=== PATIENT | male | born 1960 | race Caucasian/White ===

== ENCOUNTER 2017-05-08 17:21 | Emergency (ER) | payer SELFPAY ==
[2017-05-08 20:04] LABS: Hematocrit 39 % (42-52); Hemoglobin 13.6 g/dl (14.0-18.0); Mean Corpuscular HGB Conc 35 g/dl (31-36); Mean Corpuscular Hemoglobin 31 pg (27-31); Mean Corpuscular Volume 89 fL (80-94); Mean Platelet Volume 7 um3 (7.4-10.4); Red Blood Count 4.35 10^6/ul (4.0-5.4); Red Cell Distribution Width 13 % (10.5-15); White Blood Count 9.1 10^3/ul (3.5-10.8)
[2017-05-08 20:05] LABS: Comments Flag Yes
[2017-05-08 20:20] LABS: BUN/Creatinine Ratio 16.7 (8-20); Calcium 9.1 mg/dL (8.6-10.3); EGFR African American 85.2 (>60); EGFR Non-African American 66.2 (>60); Potassium 3.8 mmol/L (3.5-5.0)
[2017-05-08] MEDS ORDERED: Amoxicillin/Clavulanate TAB* 875 MG PO ONE (22:43)
[2017-05-08] MEDS ORDERED: traMADol TAB* 50 MG PO ONE (22:43)
--- NOTE | 2017-05-08 22:49 | ED ---
I, Oh,Soohedward, scribed for Roddy Huerta MD on 05/08/17 at 2245 . Lower Extremity - HPI Summary HPI Summary: This 56 y/o male presents to ED for throbbing LLE foot pain at dorsal aspect since 3 days ago. Pt states that he was outdoor at [employer] 3 days ago. Positive itchiness and gradual swelling. Pt is unsure if he was bitten by insect. PMHx includes DM, HLD, and HTN. Alleve did not make pain any better. - History of Current Complaint Chief Complaint: EDExtremityLower Stated Complaint: POSSIBLE INFECTION LT FT Time Seen by Provider: 05/08/17 22:39 Hx Obtained From: Patient, Medical Records Pain Intensity: 8 - Allergies/Home Medications Allergies/Adverse Reactions: Allergies Allergy/AdvReac Type Severity Reaction Status Date / Time No Known Allergies Allergy Verified 04/12/14 10:15 PMH/Surg Hx/FS Hx/Imm Hx Endocrine/Hematology History: Reports: Hx Diabetes Denies: Hx Thyroid Disease Cardiovascular History: Denies: Hx Hypertension Respiratory History: Denies: Hx Asthma, Hx Chronic Obstructive Pulmonary Disease (COPD) GI History: Denies: Hx Ulcer - Surgical History Surgery Procedure, Year, and Place: appendectomy Infectious Disease History: No Infectious Disease History: Denies: Hx Hepatitis, Traveled Outside the [place] in Last 30 Days - Family History Known Family History: Negative: Hypertension - Social History Alcohol Use: Rare Substance Use Type: Reports: None Smoking Status (MU): Never Smoked Tobacco Review of Systems Negative: Fever Positive: Other - LLE foot throbbing pain Positive: Other - itchiness. Swelling at LLE foot All Other Systems Reviewed And Are Negative: Yes Physical Exam Triage Information Reviewed: Yes Vital Signs On Initial Exam: Initial Vitals Temp Pulse Resp BP Pulse Ox 98.4 F 79 20 169/89 97 05/08/17 17:35 05/08/17 17:35 05/08/17 17:35 05/08/17 17:35 05/08/17 17:35 Vital Signs Reviewed: Yes Appearance: Positive: Well-Appearing, No Pain Distress Skin: Positive: Warm, Other - lt foot swollen erythematous warm with area of blistering Eyes: Positive: NICOLETTE ENT: Positive: Hearing grossly normal Respiratory/Lung Sounds: Positive: Breath Sounds Present Cardiovascular: Positive: RRR Abdomen Description: Positive: Nontender, Soft Bowel Sounds: Positive: Present Neurological: Positive: Alert, Oriented to Person Place, Time Diagnostics - Vital Signs Vital Signs Temp Pulse Resp BP Pulse Ox 05/08/17 22:07 99.4 F 73 18 154/90 97 05/08/17 20:45 99.4 F 66 16 139/83 100 05/08/17 18:03 97.7 F 75 20 152/66 96 05/08/17 17:35 98.4 F 79 20 169/89 97 - Laboratory Lab Results: Lab Results 05/08/17 05/08/17 Range/Units 19:56 19:56 WBC 9.1 (3.5-10.8) 10^3/ul RBC 4.35 (4.0-5.4) 10^6/ul Hgb 13.6 L (14.0-18.0) g/dl Hct 39 L (42-52) % MCV 89 (80-94) fL MCH 31 (27-31) pg MCHC 35 (31-36) g/dl RDW 13 (10.5-15) % Plt Count 339 (150-450) 10^3/ul MPV 7 L (7.4-10.4) um3 Sodium 134 (133-145) mmol/L Potassium 3.8 (3.5-5.0) mmol/L Chloride 100 L (101-111) mmol/L Carbon Dioxide 27 (22-32) mmol/L Anion Gap 7 (2-11) mmol/L BUN 19 (6-24) mg/dL Creatinine 1.14 (0.67-1.17) mg/dL Est GFR ( Amer) 85.2 (>60) Est GFR (Non-Af Amer) 66.2 (>60) BUN/Creatinine Ratio 16.7 (8-20) Glucose 217 H (70-100) mg/dL Calcium 9.1 (8.6-10.3) mg/dL Result Diagrams: 05/08/17 19:56 05/08/17 19:56 Lab Statement: Any lab studies that have been ordered have been reviewed, and results considered in the medical decision making process. Re-Evaluation - Re-Evaluation First Eval Comment: results d/w pt Lower Extremity Course/Dx - Diagnoses Provider Diagnoses: Cellulitis Discharge - Discharge Plan Condition: Stable Disposition: HOME Prescriptions: Amoxicillin/Clavulanate TAB* [Augmentin TAB 875*] 875 mg PO BID #14 tab Patient Education Materials: Amoxicillin/Clavulanate Potassium (By mouth), Cellulitis (ED) Referrals: Armando Slater MD [Primary Care Provider] - 2 Days The documentation as recorded by the Justice renee Soohyun accurately reflects the service I personally performed and the decisions made by me, Roddy Huerta MD.
[2017-05-08 22:56] VITALS: BP 139/83
== END 2017-05-08 23:03 | disposition home or self-care (01) ==
LOC: ED 17:21
DX: L03.116 Cellulitis of left lower limb (principal); E11.9 Type 2 diabetes mellitus without complications
CPT/HCPCS: 36415; 80048; 85027; 99282; A9270-GY

== ENCOUNTER 2018-03-20 11:18 | Emergency (ER) | payer BC ==
[2018-03-20] MEDS ORDERED: Albuterol/Ipratropium NEB.SOL* Albuterol 2.5 MG/Ipratropium 0.5 MG 3 ML INH ONE (11:36)
[2018-03-20] MEDS ORDERED: Albuterol/Ipratropium NEB.SOL* Albuterol 2.5 MG/Ipratropium 0.5 MG 3 ML ONE (11:37)
--- NOTE | 2018-03-20 13:57 | UC ---
Respiratory Complaint HPI - HPI Summary HPI Summary: 2 DAYS OF PRODUCTIVE COUGH, EARS FEEL BLOCKED, FEELS WHEEZY. HAS BEEN TAKING ALLERGY MEDS WITH SOME RELIEF. HAS INHALER AT HOME. - History of Current Complaint Chief Complaint: UCRespiratory Stated Complaint: CONGESTED Time Seen by Provider: 03/20/18 13:48 Hx Obtained From: Patient Onset/Duration: Gradual Onset, Lasting Days, Still Present Timing: Constant Severity Initially: Moderate Severity Currently: Moderate Pain Intensity: 4 Pain Scale Used: 0-10 Numeric Character: Cough: Productive Aggravating Factors: Nothing Alleviating Factors: Bronchodilator Associated Signs And Symptoms: Positive: Wheezing, URI. Negative: Dyspnea, Fever, Chills - Allergies/Home Medications Allergies/Adverse Reactions: Allergies Allergy/AdvReac Type Severity Reaction Status Date / Time No Known Allergies Allergy Verified 04/12/14 10:15 PMH/Surg Hx/FS Hx/Imm Hx - Additional Past Medical History Additional PMH: ALLERGIES Endocrine History: Diabetes Respiratory History: Asthma - Surgical History Surgical History: Yes Surgery Procedure, Year, and Place: appendectomy - Family History Known Family History: Negative: Hypertension - Social History Alcohol Use: Rare Substance Use Type: None Smoking Status (MU): Never Smoked Tobacco Review of Systems Constitutional: Negative ENT: Nasal Discharge Respiratory: Cough, Other - WHEEZE Cardiovascular: Negative Gastrointestinal: Negative All Other Systems Reviewed And Are Negative: Yes Physical Exam Triage Information Reviewed: Yes Appearance: Well-Appearing, No Pain Distress, Well-Nourished Vital Signs: Initial Vital Signs Temp 97 F 03/20/18 11:30 Pulse 89 03/20/18 11:30 Resp 18 03/20/18 11:30 BP 140/86 03/20/18 11:30 Pulse Ox 98 03/20/18 11:30 Vital Signs Reviewed: Yes Eyes: Positive: Conjunctiva Clear ENT: Positive: Hearing grossly normal, Pharynx normal, TMs normal - LEFT TM OCCLUDED BY CERUMEN Neck: Positive: Supple, Nontender, No Lymphadenopathy Respiratory Exam: Normal Respiratory: Positive: No respiratory distress, No accessory muscle use, Wheezing - INTERMITTENT Cardiovascular Exam: Normal Abdomen Description: Positive: Soft Musculoskeletal: Positive: No Edema Neurological: Positive: Alert Psychological: Positive: Age Appropriate Behavior Skin: Negative: rashes UC Diagnostic Evaluation - Laboratory O2 Sat by Pulse Oximetry: 98 Re-Evaluation - Re-Evaluation First Eval Re-Evaluation Time: 13:55 - FEELS MUCH IMPROVED AFTER NEB Change: Improved Respiratory Course/Dx - Course Course Of Treatment: WILL TREAT FOR VIRAL BRONCHITIS/ASTHMA. PT ADVISED TO CALL ME NEXT WEEK IF NOT IMPROVING. - Differential Dx/Diagnosis Provider Diagnoses: ASTHMA EXACERBATION/BRONCHITIS Discharge - Sign-Out/Discharge Documenting (check all that apply): Discharge/Admit/Transfer - Discharge Plan Condition: Stable Disposition: HOME Prescriptions: Codeine Phosphate/Guaifenesin [Codeine-Guaifen 10-100 mg/5 ml] 5 - 10 ml PO Q6H PRN #150 ml MDD 40ML PRN Reason: Cough predniSONE TAB* [Deltasone TAB*] 50 mg PO DAILY #5 tab Patient Education Materials: Asthma (ED), Acute Bronchitis (ED) Referrals: Armando Slater MD [Primary Care Provider] - If Needed Additional Instructions: YOUR SYMPTOMS ARE LIKELY VIRALLY AND/OR ALLERGICALLY MEDIATED AND SHOULD RESOLVE ON THEIR OWN WITH TIME. NO INDICATION FOR ANTIBIOTICS AT PRESENT. REST, HYDRATE, OTC MEDS NEEDED. WILL TREAT WITH PREDNISONE TO HELP WITH AIRWAY INFLAMMATION AND COUGH MEDICINE. CONTINUE YOUR ALBUTEROL, XYZAL AND NASACORT. SEEK FOLLOW-UP IF YOU ARE NOT IMPROVING OVER THE NEXT 1-2 WEEKS. - Billing Disposition and Condition Condition: STABLE Disposition: Home
[2018-03-20 14:12] VITALS: BP 147/91
== END 2018-03-20 14:05 | disposition home or self-care (01) ==
LOC: UCEAST 11:18
DX: J45.901 Unspecified asthma with (acute) exacerbation (principal); J40 Bronchitis, not specified as acute or chronic; E11.9 Type 2 diabetes mellitus without complications
CPT/HCPCS: 99212; A9270-GY; G0463

== ENCOUNTER 2019-08-18 12:03 | Emergency (ER) | payer OTHER ==
--- OUTSIDE RECORDS SUMMARY | 2019-08-18 12:08 | XMS REPORT | Continuity of Care Document ---
:1960 External Reference #:[id number] Author Name Hannah George M.D. (transmitted by agent of provider Tamara Palomares) Address [address] [facility], [place] [address] Care Team Providers Name Role Phone Soto Rajput MD - Gastroenterology Care Team Information Cnc Mill And Lathe Operator Quintin Vanegas DPM - Foot Surgery Care Team Information Cnc Mill And Lathe Operator [phone] Alex Willis MD - Care Team Information Cnc Mill And Lathe Operator [phone] Ophthalmology Lynda Pham M.D. - Family Medicine Care Team Information Cnc Mill And Lathe Operator [phone] Problems Active Problems Provider Date Type II diabetes mellitus uncontrolled Armando Slater, Onset: 01/14/2008 Marie,FACP Pure hypercholesterolemia Armando Slater, Onset: 01/14/2008 Marie,FACP Benign essential hypertension Armando Slater, Onset: 01/14/2008 Marie,FACP Heart murmur Armando Slater, Onset: 01/14/2008 Marie,FACP Insomnia Armando Slater, Onset: 01/14/2008 Marie,FACP Severe recurrent major depression Armando Slater, Onset: 01/14/2008 without psychotic features Marie,FACP Intrinsic asthma without status Armando Slater, Onset: 01/12/2012 asthmaticus Marie,FACP Erectile dysfunction associated with Armando Slater, Onset: 04/19/2015 type 2 diabetes mellitus Marie,FACP Social History Type Date Description Comments Sex Unknown Tobacco Use Start: Unknown End: Former Cigarette Smoker Unknown Cigarette Use Pack Years - 30 Cigarette Use Quit - Age 43 ETOH Use 11/13/2017 Denies alcohol use Recreational Drug Use Denies Drug Use Tobacco Use Start: Unknown End: Patient is a former smoker Quit in 2002 Unknown Smoking Status Reviewed: 07/22/19 Patient is a former smoker Quit in 2002 Allergies, Adverse Reactions, Alerts Description No Known Drug Allergies Medications Active Medications SIG Qnty Indications Ordering Date Provider Yzpna-3-Ekeq Ethyl 2 tab every 12 hours 120caps E78.2 Hannah George, Esters M.D. 1gm Capsules Atorvastatin 1 by mouth every day 90tabs E78.2 Hannah George, 07/22/2019 Calcium M.D. 40mg Tablets Shingrix intramuscular x 1 1units Hannah George, 07/22/2019 then repeat in 4 M.D. 50mcg/0.5ML months Suspension Rec Freestyle Insulinx as needed 1units Armando Lynch 11/08/2018 Blood Glucose Marie Slater,FACP Monitoring System W/Device Kit Freestyle Lite 3 times daily or as 100units Armando Lynch 11/08/2018 Lancets needed dx e11.65 Marie Slater,FACP Strips Freestyle Test test up to three 100units Armando Lynch 11/08/2018 times daily last Marie Slater,FACP Strips visit 12/08/17 code e11.9 Metformin HCL Take 1 Tablet By 60tabs Pari 01/13/2015 Mouth Twice Daily Marie Moore 1000mg Tablets Needs Appointment Seroquel 1 1/2 by mouth every 90tabs [address] [place], [place] [address]son 12/21/2014 300mg day Marie Soriano Tablets Accu-Chek Britta as directed. 180units Armando Lynch 11/11/2013 Rylee Slater M.D.,FACP w/Device Kit Accu-Check Britta 1units rAmando Lynch 11/11/2013 Rylee Slater M.D.,FACP Prodigy Blood check BS qid or as 400units 250.02 Armando Lynch 10/07/2013 Glucose Test Strips needed Dx code: Marie Slater,FACP 250.02 PT Id # Strips [id number] Proair HFA inhale 2 puffs by 8.5units Pari 09/16/2013 mouth 4 times a day Marie Moore 108(90Base) mcg/Act as needed Aerosol Lovastatin take 1 tablet by 30tabs E78.00 Lynda Pham MD 01/12/2012 40mg mouth everyday at Tablets bedtime--refills after appointment Cymbalta 2 po qPM 30caps F33.2 Armando Lynch 11/23/2010 60mg Caps Marie Slater,FACP DR Singh Glyburide Take 1 Tablet By 60tabs Pari 11/23/2010 2.5mg Mouth In The Morning Marie Moore Tablets And 1 In The Evening Need Appointment Aspirin 1 po qd 50tabs J45.20 Armando Lynch 08/05/2009 81mg Marie Slater,FACP Tablets Lancets- Microlet check blood sugar 100units Armando Lynch 05/05/2009 For Ascencia efrain Slater M.D.,FACP Contour Misc Trazodone HCL 1 by mouth every Unknown 150mg night at bedtime Tablets Lisinopril take 1 tablet by 30tabs Hannah George, 10mg mouth every day M.DGladys Tablets Immunizations CPT Code Status Date Vaccine Lot # [id number] Given 08/30/2018 Influenza Virus Vaccine, Quadrivalent, Split, Preservative Free 03670 Given 07/29/2017 Influenza Virus Vaccine, Quadrivalent, Split, Preservative Free 78590 Given 06/08/2014 Tetanus And Diptheria (Td) For Adult Use Preservative Free 93823 Given 07/17/2013 Flu Vaccine Split Virus Preservative Free For Indiv 3Yr Older 14894 Given 04/19/2012 Pneumonia Vaccine [id number] [id number] Given 09/26/2011 Influenza Virus 3Yrs & Over 85131 Given 08/18/2011 Influenza Virus 3Yrs & Over 17963 Refused 08/16/2009 Influenza Virus Vaccine, Pandemic Formulation Vital Signs Date Vital Result Comment 07/22/2019 2:12pm Height 69 inches 5'9" Weight 199.00 lb Heart Rate 67 /min BP Systolic 119 mmHg BP Diastolic 71 mmHg Body Temperature 98.2 F O2 % BldC Oximetry 95 % BMI (Body Mass Index) 29.4 kg/m2 11/22/2018 1:42pm Height 69 inches 5'9" Weight 191.00 lb Heart Rate 67 /min BP Systolic 130 mmHg BP Diastolic 72 mmHg Body Temperature 96.7 F O2 % BldC Oximetry 97 % BMI (Body Mass Index) 28.2 kg/m2 Results Test Date Facility Test Result H/L Range Note Lipid Profile 06/28/2019 [facility] Triglycerides 333 mg/dL 1 (Trig/Chol/HDL) [address] [place] [address] [phone] Cholesterol 218 mg/dL 2 HDL Cholesterol 57.0 mg/dL 3 LDL Cholesterol 94 mg/dL 4 Laboratory test 06/28/2019 [facility] Hemoglobin A1c 7.8 % High 4.0-5.[address] (Glyco HGB) [place] [address] [phone] Comp Metabolic 06/28/2019 [facility] Sodium 135 Normal 135- [address] mmol/[place] [address] [phone] Potassium 4.9 mmol/L Normal 3.5-5.0 Chloride 103 mmol/L Normal 101-111 Co2 Carbon Dioxide 24 mmol/L Normal 22-32 Anion Gap 8 mmol/L Normal 2-11 Glucose 201 mg/dL High 70-100 Blood Urea Nitrogen 21 mg/dL Normal 6-24 Creatinine 1.13 mg/dL Normal 0.67-1.17 BUN/Creatinine Ratio 18.6 Normal 8-20 Calcium 9.7 mg/dL Normal 8.6-10.3 Total Protein 7.0 g/dL Normal 6.4-8.9 Albumin 4.6 g/dL Normal 3.2-5.2 Globulin 2.4 g/dL Normal 2-4 Albumin/Globulin Ratio 1.9 Normal 1-3 Total Bilirubin 0.40 mg/dL Normal 0.2-1.0 Alkaline Phosphatase 68 U/L Normal 34-104 Alt 30 U/L Normal 7-52 Ast 21 U/L Normal 13-39 Egfr Non- 66.4 >60 Egfr 80.4 >60 6 1 Desirable: <150 Borderline High: 150-199 High: 200-499 Very High: >500 2 Desirable: <200 Borderline High: 200-239 High: >239 3 Low: <40 Desirable: 40-60 High: >60 4 Desirable: <100 Near Optimal: 100-129 Borderline High: 130-159 High: 160-189 Very High: >189 5 Therapeutic target for the treatment of diabetes mellitus patients is <7% HBA1C, and in selective patients <6.0%. Please refer to [place] [employer] diabetic care guidelines for further information. 6 Because ethnic data is not always readily available, this report includes an eGFR for both -Americans and non- Americans. The National Kidney Disease Education Program (NKDEP) does not endorse the use of the MDRD equation for patients that are not between the ages of 18 and 70, are , have extremes of body size, muscle mass, or nutritional status, or are non- or non-. According to the National Kidney Foundation, irrespective of diagnosis, the stage of the disease is based on the level of kidney function: Stage Description GFR(mL/min/1.73 m(2)) 1 Kidney damage with normal or decreased GFR 90 2 Kidney damage with mild decrease in GFR 60-89 3 Moderate decrease in GFR 30-59 4 Severe decrease in GFR 15-29 5 Kidney failure <15 (or dialysis) Procedures Date Code Description Status 07/21/2013 502791616 Diabetic Retinal Eye Exam Completed 12/08/2011 51458652 Colonoscopy Completed Medical Devices Description No Information Available Encounters Description No Information Available Assessments Date Code Description Provider 07/22/2019 E11.9 Type 2 diabetes mellitus without complications Hannah George M.D. 07/22/2019 E78.2 Mixed hyperlipidemia Hannah George M.D. 07/22/2019 F32.89 Other specified depressive episodes Hannah George M.D. Plan of Treatment Future Appointment(s):10/21/2019 1:00 pm - Hannah George M.D. at [facility] Internal [facility] - [facility]07/22/2019 - Hannah George M.D.E11.9 Type 2 diabetes mellitus without complicationsComments:please get your flu vaccinationFollow up: octoberRecommendations:See your reptile farmer every year. It is OK to go every 2 years if he finds no retinal damage from diabetes. Ask your reptile farmer to communicate his findings to us. See a advertising production manager every 6 months if you have numbness in your feet or a history of foot ulcers.E78.2 Mixed hyperlipidemiaNew Medication:Clcbr-5-Blqu Ethyl Esters 1 gm - 2 tab every 12 hoursAtorvastatin Calcium 40 mg - 1 by mouth every dayF32.89 Other specified depressive episodes Goals 07/22/2019 - Hannah George M.D.E11.9 Type 2 diabetes mellitus without complicationsGoal Hemoglobin A1c is less than 7.0%. Goal Blood pressure is less than 130/85. Goal LDL (bad cholesterol) is less than 100. Functional Status Description No Information Available Mental Status Description No Information Available Referrals Description No Information Available
[2019-08-18 12:16] VITALS: BP 114/70
--- NOTE | 2019-08-18 12:37 | UC ---
Respiratory Complaint HPI - HPI Summary HPI Summary: 58 y/o male presents to the urgent care c/o chest congestion w/ productive cough ane yellowish phlegm for the past week. Pt reports he gets this similar cough every year and it turns into bronchitis. He has Hx of Asthma, DM Type II , HTN and quit smoking in 2002. He has been taking OTC medications w/o any improvement and this weekend symptoms worsen w/ wheezing. This morning he has experiencing mild SOB. He has been using his albuterol inhaler w/o any improvement. Pt denies fever, chills, night swats,dizziness, chest pain, abdominal pain, N/V/D. He has been active and drinking fluids and eating well. - History of Current Complaint Chief Complaint: UCRespiratory Stated Complaint: CONGESTED Time Seen by Provider: 08/18/19 12:29 Hx Obtained From: Patient Onset/Duration: Gradual Onset, Lasting Weeks - 1 week, Still Present, Worse Since - yesterday w/ wheezing Timing: Intermittent Episodes Severity Initially: Mild Severity Currently: Moderate Pain Intensity: 8 Pain Scale Used: 0-10 Numeric Character: Cough: Productive, Sputum Description: - yellowish Aggravating Factors: Recumbent Position Alleviating Factors: OTC Meds Associated Signs And Symptoms: Positive: Wheezing, URI, Nasal Congestion, Sinus Discomfort. Negative: Dyspnea, Fever, Chills - Risk Factors Pulmonary Embolism Risk Factors: Negative Cardiac Risk Factors: Hypertension, Diabetes Pseudomonas Risk Factors: Negative Tuberculosis Risk Factors: Negative - Allergies/Home Medications Allergies/Adverse Reactions: Allergies Allergy/AdvReac Type Severity Reaction Status Date / Time No Known Allergies Allergy Verified 08/18/19 12:15 Home Medications: Home Medications Atorvastatin* [Lipitor 20 MG*] 20 mg PO 1700 08/18/19 [History Confirmed ] Odell-3 Fatty Acids/Fish Oil [Odell 3 1,000 mg Softgel] 1 cap PO DAILY 08/18/19 [History Confirmed 08/18/19] PMH/Surg Hx/FS Hx/Imm Hx Previously Healthy: Yes Endocrine History: Diabetes, Dyslipidemia Cardiovascular History: Hypertension - Surgical History Surgical History: Yes Surgery Procedure, Year, and Place: appendectomy - Family History Known Family History: Positive: Hypertension, Diabetes - Social History Occupation: Employed Full-time Lives: With Family Alcohol Use: None Substance Use Type: None Smoking Status (MU): Former Smoker Review of Systems All Other Systems Reviewed And Are Negative: Yes Constitutional: Positive: Negative Skin: Positive: Negative Eyes: Positive: Negative ENT: Positive: Nasal Discharge - yellowish, Sinus Congestion, Sinus Pain/ Tenderness, Other - PND Respiratory: Positive: Cough - producitve w/ yellowish phlegm, Other - wheezing Cardiovascular: Positive: Negative Gastrointestinal: Positive: Negative Genitourinary: Positive: Negative Motor: Positive: Negative Neurovascular: Positive: Negative Musculoskeletal: Positive: Negative Neurological: Positive: Negative Psychological: Positive: Negative Is Patient Immunocompromised?: No Physical Exam - Summary Physical Exam Summary: Vital Signs Reviewed: Yes General: well developed, well nourished male sitting in the examining table w/o any apparent distress Eyes: Positive: Conjunctiva Clear - PERRLA, EOMI, fundi grossly normal ENT: Positive: Normal ENT inspection, Hearing grossly normal, Pharynx normal, Nasal congestion - edematous and erythematous nasal mucosa, Nasal drainage - yellowish drainage, TMs normal. Negative: Tonsillar swelling, Tonsillar exudate Neck: Positive: Supple, Nontender, No Lymphadenopathy Respiratory: no orthopnea or dyspnea. Able to speak in full sentences, no retractions or accessory muscle use, no tripod position, stridor, or head bobbing. Positive breath sounds bilaterally. diffuse scattered wheezing and rhonchi on b/L lungs, no crackles or rales. Cardiovascular: Positive: RRR, No Murmur, Pulses Normal, Brisk Capillary Refill Abdomen Description: Positive: Nontender, No Organomegaly, Soft. Negative: CVA Tenderness (R), CVA Tenderness (L) Bowel Sounds: Positive: Present Musculoskeletal Exam: Normal Musculoskeletal: Positive: Strength Intact, ROM Intact, No Edema Neurological Exam: Normal Psychological Exam: Normal Skin Exam: Normal Triage Information Reviewed: Yes Vital Signs: Initial Vital Signs Temp 97.6 F 08/18/19 12:12 Pulse 64 08/18/19 12:12 Resp 18 08/18/19 12:12 BP 114/70 08/18/19 12:12 Pulse Ox 99 08/18/19 12:12 Respiratory Course/Dx - Course Course Of Treatment: 58 y/o male presents to the urgent care c/o chest congestion w/ productive cough ane yellowish phlegm for the past week. Pt reports he gets this similar cough every year and it turns into bronchitis. He has Hx of Asthma, DM Type II , HTN and quit smoking in 2002. He has been taking OTC medications w/o any improvement and this weekend symptoms worsen w/ wheezing. This morning he has experiencing mild SOB. He has been using his albuterol inhaler w/o any improvement. Pt denies fever, chills, night swats,dizziness, chest pain, abdominal pain, N/V/D. He has been active and drinking fluids and eating well. Hx obtained. Hx obtained. Pt w/ B/L lungs scattered wheezing and rhonchi on examination. O2Sat:99%. Pt w/ PMHX of asthma and Hx smoking in the past. Chest X-ray ordered: impression: no acute disease observed as per radiologist. Pt given at the clinic Duoneb treatment. Pt tolerated well medications and his lungs improved. Pt states feeling better. Pt will be tx w/ Rx Doxycycline PO , Tessalon tabs PO and advised to continue using his inhaler. Strongly advised to f/u with his PCP for further management in his asthma if not improvement. Pt understood and agreed with D/C instructions and left the clinic hemodynamically stable and feeling better. - Differential Dx/Diagnosis Differential Diagnosis/HQI/PQRI: Asthma, Bronchitis, Exacerbation Of COPD, Lower Resp Infection, Sinusitis Provider Diagnosis: Asthma with acute exacerbation in adult, Bronchitis Discharge ED - Sign-Out/Discharge Documenting (check all that apply): Patient Departure - D/C home All imaging exams completed and their final reports reviewed: Yes - Discharge Plan Condition: Stable Disposition: HOME Prescriptions: Benzonatate CAP* [Tessalon 100 MG CAP*] 100 mg PO TID #21 cap DOXYcycline CAP(*) [DOXYcycline 100MG CAP(*)] 100 mg PO BID #20 cap Patient Education Materials: Asthma (ED) Referrals: Rocky aSez MD [Primary Care Provider] - 3 Days Additional Instructions: 1-Please take full course of antibiotic to avoid resistance. TAke yogurts w/ probiotics or Culturelle to protect your GI system 2-Take Tessalon PO tabs as directed and continue use the albuterol inhaler to alleviate cough and wheezing . Increase fluid intake, rest and eat well. 3- If symptoms do not improve or worsen or your develop SOB with fever and severe wheezing please go immediately to the ER further evaluation and treatment. 4- F/u with your PCP in 2-3 days for further management on your Asthma - Billing Disposition and Condition Condition: STABLE Disposition: Home
[2019-08-18] MEDS ORDERED: Albuterol/Ipratropium NEB.SOL* Albuterol 2.5 MG/Ipratropium 0.5 MG 3 ML INH ONE (12:51)
== END 2019-08-18 14:05 | disposition home or self-care (01) ==
LOC: UCEAST 12:03
DX: J45.901 Unspecified asthma with (acute) exacerbation (principal); I10 Essential (primary) hypertension; E11.9 Type 2 diabetes mellitus without complications; E78.5 Hyperlipidemia, unspecified; R09.81 Nasal congestion; R09.89 Other specified symptoms and signs involving the circulatory and respiratory systems; Z79.899 Other long term (current) drug therapy; Z87.891 Personal history of nicotine dependence
CPT/HCPCS: 71046; 99212; A9270-GY; G0463

== ENCOUNTER 2023-01-24 05:51 | Observation (INO) ==
[~2023-01-24 05:51] MED LIST: Naloxone 0.4 mg VIAL 0.4 mg/ml 1 ml VIAL IV PRN
[2023-01-24] MEDS ORDERED: Lactated Ringers 1000 ml BAG 1,000 ML IV SCH (06:00)
[2023-01-24] MEDS ORDERED: Famotidine IV 10 MG/ML 2 ml VIAL (20 mg) IV ONE (06:00)
[2023-01-24] MEDS ORDERED: Buffered Lidocaine 1% SYRIN 1 ml INTRADERM ONE (06:00)
[2023-01-24] MEDS ORDERED: Chlorhexidine MOUTHWASH 0.12% 15 ML UDC ONE (06:06)
[2023-01-24] MEDS ORDERED: Lidocaine 2% PF 5 ML VIAL ONE (06:09)
[2023-01-24] MEDS ORDERED: Midazolam 2 mg/2 ml VIAL 1 mg/ml 2 ml VIAL (2 mg) ONE (06:24)
[2023-01-24] MEDS ORDERED: fentaNYL 100 mcg/2 ml 50 MCG/ML VIAL ONE ×5 (06:24→12:42)
[2023-01-24] MEDS ORDERED: Dexamethasone IV 4 MG/ML VIAL 1 ml VIAL ONE (06:25)
[2023-01-24] MEDS ORDERED: Ondansetron 4 mg VIAL 2 MG/ML 2 ml VIAL ONE (06:25)
[2023-01-24] MEDS ORDERED: Propofol 10 MG/ML 20 ML BTL ONE (06:25)
[2023-01-24] MEDS ORDERED: Rocuronium 50 mg VIAL 10 mg/ml 5 ml VIAL (50 mg) ONE ×2 (06:26→09:20)
[2023-01-24] MEDS ORDERED: Famotidine IV 10 MG/ML 2 ml VIAL (20 mg) ONE (06:36)
[2023-01-24] MEDS ORDERED: ceFAZolin 2 GM PREMIX 2 GM/50 ML BAG ONE (06:36)
[2023-01-24] MEDS ORDERED: Thrombin 5,000 UNITS 1 APPLIC KIT - topical use - TOPICAL ONE (06:58)
[2023-01-24] MEDS ORDERED: ceFAZolin VIAL VIAL ONE (06:58)
[2023-01-24] MEDS ORDERED: Gelfoam Sponge SIZE 100 SPONGE ONE (06:58)
[2023-01-24] MEDS ORDERED: Lidocaine 1% w EPI 1:200,000 SDV 30 ML VIAL ONE (06:58)
[2023-01-24] MEDS ORDERED: Levalbuterol HFA INHALER MDI ONE (07:05)
[2023-01-24] MEDS ORDERED: Acetaminophen IV 1 GM/100ML 1,000 MG/100 ML BAG IV ONE (08:15)
[2023-01-24] MEDS ORDERED: Phenylephrine 40 mcg/mL 10mL (400mcg) SYRINGE ONE (09:01)
[2023-01-24] MEDS ORDERED: Phenylephrine IV 10 MG/ML 1 ml VIAL ONE (09:08)
[2023-01-24] MEDS ORDERED: Ondansetron 4 mg VIAL 2 MG/ML 2 ml VIAL IV PRN (11:10)
[2023-01-24] MEDS ORDERED: Albuterol HFA INHALER 8 gm MDI INH PRN (11:16)
[2023-01-24] MEDS ORDERED: Senna TAB 8.6 mg TAB PO PRN (11:20)
[2023-01-24] MEDS: fentaNYL 100 mcg/2 ml 50 MCG/ML VIAL IV PRN ×5 (11:36→12:43)
[2023-01-24] MEDS: Lactated Ringers 1000 ml BAG 1,000 ML IV SCH (14:30)
[2023-01-24] MEDS: Morphine 2 MG/ML SYRINGE IV PRN ×2 (14:50→18:34)
[2023-01-24] MEDS: DULoxetine DR 60 mg CAP PO SCH (20:57)
[2023-01-24] MEDS ORDERED: Insulin GLARGINE 100 un/ml 10 ml VIAL SUBCUT SCH (21:00)
[2023-01-25] MEDS: Lactated Ringers 1000 ml BAG 1,000 ML IV SCH (05:17)
[2023-01-25] MEDS: Morphine 2 MG/ML SYRINGE IV PRN ×2 (08:24→19:23)
[2023-01-25] MEDS: Aspirin EC 81 mg TAB.EC (enteric coated) PO SCH (09:52)
[2023-01-25] MEDS: DULoxetine DR 60 mg CAP PO SCH (21:00)
[2023-01-26 08:10] VITALS: BP 120/68
[2023-01-26] MEDS: Aspirin EC 81 mg TAB.EC (enteric coated) PO SCH (09:06)
== END 2023-01-26 11:25 | disposition home or self-care (01) ==
LOC: OR 05:51 → INTOOBSV 14:14 → SSU 14:14
PROVIDERS: ADMIT Neurological Surgery; ATTEND Neurological Surgery
PROC: O.NEPLF (2023-01-24 07:30)